=== PATIENT | female | born 1995 | race Caucasian/White ===

== ENCOUNTER → 2022-01-24 12:12 | Outpatient (BNVA) | payer OTHER, SELFPAY | PROVIDERS: Visit Provider Registered Nurse Neonatal Intensive Care | DX: T14.8XXA Other injury of unspecified body region, initial encounter (principal); W57.XXXA Bitten or stung by nonvenomous insect and other nonvenomous arthropods, initial encounter | CPT/HCPCS: 86618; 86666; 86757 ==

== ENCOUNTER 2024-10-06 18:45 | Emergency (ER) | payer OTHER, SELFPAY ==
[2024-10-06 19:12] VITALS: BP 115/76; PULSE 92; RESP 15; TEMP 36.6; O2SAT 99; BMI 24.7
--- NOTE | 2024-10-06 19:22 | ECG_ITS ---
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
[2024-10-06 21:39] VITALS: BP 113/69; PULSE 74; RESP 16; O2SAT 100
--- NOTE | 2024-10-06 22:00 | W.ED.ARRPALP ---
HPI - Arrhythmia/Palpitations General: Chief Complaint: Headache Stated Complaint: High Heart Rate arms are lisandra Possible A fib Time Seen by Provider: 10/06/24 21:42 History of Present Illness: This patient is a 29-year-old white female who presents to the emergency department after having an episode of tachycardia. Patient states she woke up this morning with a headache. She did not think too much of it because she has frequent migraines. She took a migraine medication this morning. She has had some nausea throughout the day. Tonight she had an episode of nausea with some vomiting and immediately after that she developed an episode of tachycardia. She states her heart rate was in the 150s. She has a friend who is a nurse practitioner who thought maybe she was in A-fib or possibly SVT. She tried some Valsalva maneuvers and this did relieve the tachycardia. Patient is asymptomatic now except for mild headache Related Data Previous Rx's ?Medication ?Instructions ?Recorded doxycycline hyclate 100 mg tablet 100 mg PO BID 7 days #14 tabs 01/24/22 Allergies Allergy/AdvReac Type Severity Reaction Status Date / Time No Known Allergies Allergy Unverified 01/24/22 11:28 Review of Systems General: Reports: 10 or more systems reviewed and unremarkable except in HPI and below Card: Reports: palpitations Neuro: Reports: headache(s) Physical Exam Const: COMMON NORMALS: no acute distress, patient oriented x3 and no limitations GENERAL APPEARANCE: cooperative and comfortable HENMT: COMMON NORMALS: normocephalic, atraumatic, Normal nasal mucous membranes and turbinates present, moist oral mucous membranes and oropharynx normal HEAD & SCALP: normal to inspection, normocephalic and atraumatic FACE & SINUS: normal facial exam NOSE: Normal nasal mucous membranes and turbinates present Eye: COMMON NORMALS: Equal, round and reactive pupils present, EOMs intact bilaterally and conjunctivae normal GENERAL EYE: appearance normal, both eyes and all related structures CONJUNCTIVA: Yes conjunctivae normal PUPIL: Yes Equal, round and reactive pupils present Neck/C-Spine: COMMON NORMALS: supple and no JVD Chest: COMMONS NORMALS: normal inspection of the chest Resp: COMMON NORMALS: normal respiratory effort and clear to auscultation bilaterally AUSCULTATION: clear to auscultation bilaterally Cardio: COMMON NORMALS: no JVD, regular rate, regular rhythm, No gallops present (Cardio), No murmurs present (Cardio) and No rub (Cardio) RATE: regular rate RHYTHM: regular rhythm GI: COMMON NORMALS: Normal to inspection, nondistended, normoactive bowel sounds present, Soft to palpation and non-tender AUSCULTATION: Yes normoactive bowel sounds PALPATION: Yes Soft to palpation : COMMON NORMALS: Yes no CVA tenderness BLADDER/KIDNEY EXAM: Yes no CVA tenderness Back/Pelvis: COMMON NORMALS: no CVA tenderness and thoracic and lumbar spine normal to inspection Extremity: COMMON NORMALS: normal to inspection Neuro: COMMON NORMALS: patient oriented x3 and CN's II-XII intact bilaterally Psych: COMMON NORMALS: mental status grossly normal, Normal thought process present and cooperative THOUGHT PROCESS: Normal thought process present Skin: COMMON NORMALS: no rashes or lesions noted, turgor normal and no jaundice GENERAL SKIN EXAM: no rashes or lesions noted and turgor normal Course Vital Signs: Vital signs: Vital Signs Temperature 97.9 F 10/06/24 19:12 Pulse Rate 74 10/06/24 21:39 Respiratory Rate 16 10/06/24 21:39 Blood Pressure 113/69 10/06/24 21:39 Pulse Oximetry 100 10/06/24 21:39 Oxygen Delivery Me thod Room Air 10/06/24 21:39 MDM - Arrhythmia/Palpitations Medical Decision Making EKG revealed mild sinus tachycardia at a rate of 101. No ST segment abnormalities. He is highly unlikely the patient was in atrial fibrillation at her age with no other comorbidities. She may have had an episode of SVT or it may simply have been an episode of sinus tachycardia following the retching. I discussed these with her. If she does have another episode of recommended she return to the emergency department soon as possible for evaluation. If she is having frequent episodes recommended she have her doctor order an event monitor. She was discharged in stable condition. No radiology studies performed this visit Discharge Plan Discharge Patient Disposition: Home Clinical Impression: Palpitations Condition: Stable Prescriptions: No Action doxycycline hyclate 100 mg tablet 100 mg PO BID 7 Days Qty: 14 0RF Discharge Orders: Discharge ED (Routine); Ordered 10/06/24 Ordered By: Tip Najera Patient Instructions: Heart Palpitations, Supraventricular Tachycardia (ED) Activity Restrictions/Additional Instructions: If you have another episode of tachycardia try to get into the emergency department soon as possible for evaluation. If you are having frequent episodes follow-up with your primary care provider and they can arrange for an event monitor or Holter monitor. Print Language: Kyrgyz Coding Level of Care Code ED Manager Agriculture for Angela Villar
[2024-10-06 22:16] VITALS: BP 106/72; PULSE 75; RESP 16; O2SAT 99
== END 2024-10-06 22:15 | disposition home or self-care (01) ==
PROVIDERS: Emergency Provider Emergency Medicine
DX: R00.2 Palpitations (principal)
CPT/HCPCS: 93005; 99283